=== PATIENT | male | born 1965 | race African-American/Black ===

== ENCOUNTER 2022-10-23 19:21 | Emergency (ER) | payer BC, OTHER ==
[~2022-10-23] VITALS: Ht 170.2 cm; Wt 68.4 kg
[2022-10-23] MEDS ORDERED: KETOROLAC 60MG/2ML VIAL IM ONE (20:45)
[2022-10-23 21:14] VITALS: BP 128/87
== END 2022-10-23 21:16 | disposition left against medical advice (07) ==
LOC: ER 19:21
DX: Z43.0 Encounter for attention to tracheostomy (principal); Z87.891 Personal history of nicotine dependence
CPT/HCPCS: 99281

== ENCOUNTER 2024-06-17 17:07 | Inpatient (IN) | payer MEDICARE, OTHER ==
[~2024-06-17] VITALS: Ht 170.2 cm; Wt 52.8 kg
[2024-06-17] VITALS (7 sets, daily range): BP systolic 131–138; BP diastolic 74–77; PULSE 100–107; RESP 17–25; TEMP 36.61404–37.6412; O2SAT 97–99
[2024-06-17] MEDS: METHYLPREDNISOLONE SOD SUCC 125MG/2ML (ACT-O-VIAL) IV STA (17:36)
[2024-06-17] MEDS: AZITHROMYCIN 500MG/250ML 250 ML IV ONE (17:45)
[2024-06-17] MEDS: SODIUM CHLORIDE 0.9% 1000ML BAG (SEPSIS BOLUS) IV ONE (17:45)
[2024-06-17 17:55] LABS: HEMATOCRIT. 32.2 % (42.0-52.0); MEAN CORPUSCULAR HEMOGLOBIN 30.9 pg (28.0-32.0); MEAN CORPUSCULAR HGB CONC 31.1 g/dL (31.0-37.0); MEAN CORPUSCULAR VOLUME 99.5 fL (80.0-94.0); MEAN PLATELET VOLUME 7.3 fl (7.4-10.4); PLATELET 136 x1000/uL (130-400); RED BLOOD CELL COUNT 3.23 mill/uL (4.7-6.1); RED CELL DISTRIBUTION WIDTH 14.8 % (11.6-14.6); WHITE BLOOD COUNT 7.1 x1000/uL (4.5-11.0)
[2024-06-17] MEDS: IPRATROPIUM BROMIDE (0.02%) 0.5MG/2.5ML NEB HHN STA (17:59)
[2024-06-17] MEDS: ALBUTEROL (0.083%) 2.5MG/3ML NEB HHN STA (17:59)
[2024-06-17 18:01] LABS: CHLORIDE 94 mEq/L (98-107); SODIUM 140 mEq/L (136-145)
[2024-06-17 18:02] LABS: CALCIUM 9.4 mg/dL (8.7-10.4)
[2024-06-17 18:03] LABS: INR 0.9; PROTHROMBIN TIME 10.4 sec (9.6-11.0)
[2024-06-17 18:07] LABS: CREATININE 0.7 mg/dL (0.6-1.3); GLUCOSE 126 mg/dL (70-105); UREA NITROGEN BLOOD 17 mg/dL (9-23)
[2024-06-17 18:08] LABS: CARBON DIOXIDE > 40 mEq/L (21-32)
[2024-06-17 18:09] LABS: ALANINE AMINOTRANSFERASE 12 IU/L (10-49); ALBUMIN 3.9 g/dL (3.2-4.8); ASPARTATE AMINOTRANSFERASE 14 IU/L (<34); BILIRUBIN DIRECT 0.1 mg/dL (<=3.0); BILIRUBIN TOTAL 0.5 mg/dL (0.1-1.0); PROTEIN TOTAL 7.6 g/dL (6.0-8.3); TROPONIN I HIGH SENSITIVITY 8 ng/L (3.0-53)
[2024-06-17 18:10] LABS: DIFFERENTIAL COMMENT 1
[2024-06-17 18:39] LABS: BG BASE EXCESS 19.1 mmol/L (-2.0-3.0); BG CARBOXYHEMOGLOBIN 1.6 % (0.5-1.5); BG DEOXYHEMOGLOBIN 3.9 % (0.0-5.0); BG FRACTION INSPIRED OXYGEN 60; BG METHEMOGLOBIN 0.3 % (0.5-1.5); BG OXYHEMOGLOBIN 94.2 % (94.0-98.0); BG PCO2 127.5 mmHg (35.0-48.0); BG PO2 88.6 mmHg (83.0-108.0); BG SAMPLE SITE RIGHT BRACHIAL; BG TOTAL RESPIRATORY RATE 23 b/min; BG VENT MODE MASK - BIPAP
[2024-06-17 19:28] LABS: PLATELET ESTIMATE NORMAL
[2024-06-17 20:54] LABS: CLARITY URINE CLEAR (CLEAR); COLOR URINE YELLOW (YELLOW); GLUCOSE URINE NEGATIVE (NEGATIVE); KETONES URINE NEGATIVE (NEGATIVE); LEUKOCYTE ESTERASE URINE NEGATIVE (NEGATIVE); NITRITE URINE NEGATIVE (NEGATIVE); OCCULT BLOOD URINE NEGATIVE (NEGATIVE); PH URINE 5.5 (4.5-8.0); PROTEIN URINE 1+ (NEGATIVE); SPECIFIC GRAVITY URINE 1.021 (1.005-1.030); UROBILINOGEN URINE 0.2 E.U./dL (0.2-1.0)
[2024-06-17 21:41] LABS: RBC URINE 0-2 /hpf (0-2); WBC URINE 0-2 /hpf (0-2)
[2024-06-17 21:42] LABS: BACTERIA URINE NONE SEEN; SQUAMOUS EPITHELIAL CELL URINE 1+ /lpf (RARE/1+); YEAST URINE NONE SEEN
[2024-06-17] MEDS ORDERED: ONDANSETRON HCL 4MG/2ML INJ IV PRN (23:45)
[2024-06-17] MEDS ORDERED: CLONIDINE 0.1MG TABLET PO PRN (23:45)
[2024-06-17] MEDS ORDERED: NALOXONE HCL 0.4MG/ML VIAL IV PRN (23:45)
[2024-06-18] VITALS (75 sets, daily range): BP systolic 96–157; BP diastolic 63–96; PULSE 58–130; RESP 12–30; TEMP 36.61404–37.72524; O2SAT 10–100
[2024-06-18] LABS: BG BASE EXCESS 20.6 mmol/L (-2.0-3.0); BG CARBOXYHEMOGLOBIN 1.9 % (0.5-1.5); BG DEOXYHEMOGLOBIN 2.1 % (0.0-5.0); BG FRACTION INSPIRED OXYGEN 60; BG HCO3 ACT 51.8 mmol/L (21.0-28.0); BG METHEMOGLOBIN 0.3 % (0.5-1.5); BG OXYGEN SATURATION 97.9 % (94.0-98.0); BG OXYHEMOGLOBIN 95.7 % (94.0-98.0); BG PCO2 118.4 mmHg (35.0-48.0); BG PH 7.259 (7.350-7.450); BG PO2 101.5 mmHg (83.0-108.0); BG SAMPLE SITE RIGHT RADIAL; BG TOTAL HEMOGLOBIN 9.9 g/dL (13.5-17.5); BG VENT MODE MASK - BIPAP
[2024-06-18] MEDS: SODIUM CHLORIDE 0.9% 1,000 ML IV SCH (00:15)
[2024-06-18] MEDS: PIPERACILLIN/TAZO 3.375G/50ML 50 ML IV SCH (00:15)
[2024-06-18] MEDS: IPRATROPIUM/ALBUTEROL 0.5-3(2.5)MG/3ML NEB HHN SCH (00:42)
[2024-06-18] MEDS: QUETIAPINE FUMARATE 50MG TABLET PO SCH ×2 (02:07→20:54)
[2024-06-18] MEDS: METHYLPREDNISOLONE SOD SUCC 40MG/ML (ACT-O-VIAL) IV SCH (06:33)
[2024-06-18 07:43] LABS: HEMATOCRIT. 29.6 % (42.0-52.0); HEMOGLOBIN. 9.2 g/dL (14.0-18.0); MEAN CORPUSCULAR HEMOGLOBIN 30.9 pg (28.0-32.0); MEAN CORPUSCULAR HGB CONC 31.1 g/dL (31.0-37.0); MEAN CORPUSCULAR VOLUME 99.4 fL (80.0-94.0); MEAN PLATELET VOLUME 7.8 fl (7.4-10.4); PLATELET 132 x1000/uL (130-400); RED BLOOD CELL COUNT 2.98 mill/uL (4.7-6.1); RED CELL DISTRIBUTION WIDTH 14.9 % (11.6-14.6); WHITE BLOOD COUNT 4.2 x1000/uL (4.5-11.0)
[2024-06-18 07:49] LABS: CHLORIDE 98 mEq/L (98-107); POTASSIUM 5.4 mEq/L (3.5-5.1); SODIUM 141 mEq/L (136-145)
[2024-06-18 07:51] LABS: CALCIUM 9.2 mg/dL (8.7-10.4); DIFFERENTIAL COMMENT 1
[2024-06-18 07:55] LABS: CREATININE 0.7 mg/dL (0.6-1.3); GLUCOSE 131 mg/dL (70-105); UREA NITROGEN BLOOD 14 mg/dL (9-23)
[2024-06-18] MEDS: PANTOPRAZOLE SODIUM 40 MG/VIAL IV SCH (08:32)
[2024-06-18] MEDS: AZITHROMYCIN 500MG/250ML 250 ML IV SCH (08:34)
[2024-06-18] MEDS: FUROSEMIDE 20MG/2ML VIAL IVP SCH (08:34)
[2024-06-18] MEDS: ENOXAPARIN 40MG/0.4ML SYR SUBCUT SCH (08:34)
[2024-06-18 08:53] LABS: CARBON DIOXIDE > 40 mEq/L (21-32)
[2024-06-18 09:23] LABS: BG BASE EXCESS 18.6 mmol/L (-2.0-3.0); BG CARBOXYHEMOGLOBIN 1.8 % (0.5-1.5); BG DEOXYHEMOGLOBIN 1.4 % (0.0-5.0); BG FRACTION INSPIRED OXYGEN 60; BG HCO3 ACT 52.7 mmol/L (21.0-28.0); BG METHEMOGLOBIN 0.3 % (0.5-1.5); BG OXYGEN SATURATION 98.6 % (94.0-98.0); BG OXYHEMOGLOBIN 96.5 % (94.0-98.0); BG PCO2 150.1 mmHg (35.0-48.0); BG PH 7.163 (7.350-7.450); BG PO2 127.4 mmHg (83.0-108.0); BG SAMPLE SITE RIGHT RADIAL; BG TOTAL HEMOGLOBIN 11.5 g/dL (13.5-17.5); BG VENT MODE MASK - BIPAP
[2024-06-18 10:14] LABS: *AMPHETAMINES SCREEN URINE NEGATIVE (NEGATIVE); *BARBITURATES SCREEN URINE NEGATIVE (NEGATIVE); *BENZODIAZEPINES SCREEN URINE NEGATIVE (NEGATIVE); *COCAINE SCREEN URINE NEGATIVE (NEGATIVE); CANNABINOID URINE SCREEN NEGATIVE (NEGATIVE); ECSTASY MDMA SCREEN URINE NEGATIVE (NEGATIVE); METHADONE URINE SCREEN NEGATIVE (NEGATIVE); OPIATES URINE SCREEN PRESUMPTIVE POSITIVE (NEGATIVE); PHENCYCLIDINE URINE SCREEN NEGATIVE (NEGATIVE)
[2024-06-18 11:18] LABS: BG BASE EXCESS 22.9 mmol/L (-2.0-3.0); BG CARBOXYHEMOGLOBIN 2.1 % (0.5-1.5); BG FRACTION INSPIRED OXYGEN 60; BG HCO3 ACT 57.6 mmol/L (21.0-28.0); BG METHEMOGLOBIN 0.3 % (0.5-1.5); BG OXYHEMOGLOBIN 96.6 % (94.0-98.0); BG PCO2 162.4 mmHg (35.0-48.0); BG PH 7.168 (7.350-7.450); BG PO2 144.1 mmHg (83.0-108.0); BG SAMPLE SITE RIGHT RADIAL; BG TOTAL HEMOGLOBIN 11.4 g/dL (13.5-17.5); BG VENT MODE MASK - BIPAP
[2024-06-18] MEDS: DEXMEDETOMIDINE 400 MCG/100 ML 100 ML IV PRN (13:21)
[2024-06-18] MEDS: LORAZEPAM 2MG/ML INJ IV NR (13:50)
[2024-06-18 14:58] LABS: BG BASE EXCESS 19.1 mmol/L (-2.0-3.0); BG CARBOXYHEMOGLOBIN 2.3 % (0.5-1.5); BG DEOXYHEMOGLOBIN 2.3 % (0.0-5.0); BG FRACTION INSPIRED OXYGEN 40; BG HCO3 ACT 42.9 mmol/L (21.0-28.0); BG METHEMOGLOBIN 0.3 % (0.5-1.5); BG OXYGEN SATURATION 97.6 % (94.0-98.0); BG OXYHEMOGLOBIN 95.1 % (94.0-98.0); BG PCO2 44.8 mmHg (35.0-48.0); BG PH 7.599 (7.350-7.450); BG PO2 72.8 mmHg (83.0-108.0); BG SAMPLE SITE RIGHT RADIAL; BG TOTAL HEMOGLOBIN 12.5 g/dL (13.5-17.5); BG VENT MODE VENT - AC
[2024-06-18 15:48] LABS: BASOPHILS % 0.2 % (0.0-2.0); EOSINOPHILS % 0.3 % (0.0-5.0); HEMATOCRIT. 29.9 % (42.0-52.0); HEMOGLOBIN. 9.5 g/dL (14.0-18.0); LYMPHOCYTES % 9.6 % (20.0-50.0); MEAN CORPUSCULAR HEMOGLOBIN 31.4 pg (28.0-32.0); MEAN CORPUSCULAR HGB CONC 31.8 g/dL (31.0-37.0); MEAN CORPUSCULAR VOLUME 98.6 fL (80.0-94.0); MEAN PLATELET VOLUME 8.5 fl (7.4-10.4); MONOCYTES % 10.7 % (2.0-8.0); NEUTROPHILS % 79.2 % (40.0-76.0); PLATELET 133 x1000/uL (130-400); RED BLOOD CELL COUNT 3.03 mill/uL (4.7-6.1); RED CELL DISTRIBUTION WIDTH 14.9 % (11.6-14.6); WHITE BLOOD COUNT 4.7 x1000/uL (4.5-11.0)
[2024-06-18 15:54] LABS: CHLORIDE 93 mEq/L (98-107); POTASSIUM 4.6 mEq/L (3.5-5.1); SODIUM 140 mEq/L (136-145)
[2024-06-18 15:55] LABS: CALCIUM 9.5 mg/dL (8.7-10.4)
[2024-06-18 15:57] LABS: CARBON DIOXIDE > 40 mEq/L (21-32)
[2024-06-18 16:00] LABS: CREATINE KINASE MB FRACTION 0.8 ng/mL (0.5-3.6); CREATININE 0.8 mg/dL (0.6-1.3); GLUCOSE 99 mg/dL (70-105); TROPONIN I HIGH SENSITIVITY 6 ng/L (3.0-53); UREA NITROGEN BLOOD 15 mg/dL (9-23)
[2024-06-18 16:02] LABS: ALANINE AMINOTRANSFERASE 13 IU/L (10-49); ALBUMIN 3.6 g/dL (3.2-4.8); ASPARTATE AMINOTRANSFERASE 13 IU/L (<34); BILIRUBIN TOTAL 1.1 mg/dL (0.1-1.0); CREATINE KINASE 39 IU/L (46-171); PHOSPHORUS 1.6 mg/dL (2.5-4.9); PROTEIN TOTAL 7.1 g/dL (6.0-8.3)
[2024-06-18 16:06] LABS: NUCLEATED RED BLOOD CELLS 1 /100 WBC; PLATELET ESTIMATE NORMAL
[2024-06-18] MEDS: ACETYLCYSTEINE 200MG/ML 20% VIAL 4ML INH SCH (16:50)
[2024-06-18 23:25] LABS: BG BASE EXCESS 13.7 mmol/L (-2.0-3.0); BG DEOXYHEMOGLOBIN 0.4 % (0.0-5.0); BG FRACTION INSPIRED OXYGEN 50; BG HCO3 ACT 37.2 mmol/L (21.0-28.0); BG METHEMOGLOBIN 0.3 % (0.5-1.5); BG OXYGEN SATURATION 99.6 % (94.0-98.0); BG OXYHEMOGLOBIN 98.3 % (94.0-98.0); BG PCO2 42.3 mmHg (35.0-48.0); BG PH 7.562 (7.350-7.450); BG PO2 150.4 mmHg (83.0-108.0); BG TOTAL HEMOGLOBIN 9.8 g/dL (13.5-17.5); BG VENT MODE VENT - AC
[2024-06-19] VITALS (103 sets, daily range): BP systolic 109–171; BP diastolic 59–112; PULSE 51–108; RESP 14–28; TEMP 36.61404–37.66968; O2SAT 95–100
[2024-06-19 11:24] LABS: BG BASE EXCESS 11.2 mmol/L (-2.0-3.0); BG CARBOXYHEMOGLOBIN 0.7 % (0.5-1.5); BG FRACTION INSPIRED OXYGEN 40; BG HCO3 ACT 36.6 mmol/L (21.0-28.0); BG METHEMOGLOBIN 0.3 % (0.5-1.5); BG PCO2 53.8 mmHg (35.0-48.0); BG PH 7.451 (7.350-7.450); BG PO2 133.8 mmHg (83.0-108.0); BG SAMPLE SITE RIGHT RADIAL; BG TOTAL HEMOGLOBIN 9.7 g/dL (13.5-17.5); BG VENT MODE VENT - AC
[2024-06-19 13:07] LABS: CHLORIDE 98 mEq/L (98-107); POTASSIUM 3.3 mEq/L (3.5-5.1); SODIUM 141 mEq/L (136-145)
[2024-06-19 13:08] LABS: CALCIUM 8.9 mg/dL (8.7-10.4); CARBON DIOXIDE 40 mEq/L (21-32)
[2024-06-19 13:13] LABS: CREATININE 0.9 mg/dL (0.6-1.3); GLUCOSE 131 mg/dL (70-105); UREA NITROGEN BLOOD 23 mg/dL (9-23)
[2024-06-19 16:29] LABS: HEMOGLOBIN. 9.2 g/dL (14.0-18.0); MEAN CORPUSCULAR HEMOGLOBIN 30.4 pg (28.0-32.0); MEAN CORPUSCULAR HGB CONC 31.8 g/dL (31.0-37.0); MEAN CORPUSCULAR VOLUME 95.6 fL (80.0-94.0); MEAN PLATELET VOLUME 7.6 fl (7.4-10.4); PLATELET 150 x1000/uL (130-400); RED BLOOD CELL COUNT 3.04 mill/uL (4.7-6.1); RED CELL DISTRIBUTION WIDTH 14.8 % (11.6-14.6); WHITE BLOOD COUNT 3.8 x1000/uL (4.5-11.0)
[2024-06-19 16:31] LABS: DIFFERENTIAL COMMENT 1
[2024-06-19 16:53] LABS: PLATELET ESTIMATE NORMAL
[2024-06-19] MEDS: QUETIAPINE FUMARATE 50MG TABLET PO SCH (16:58)
[2024-06-19] MEDS: POTASSIUM CHLORIDE 20MEQ/PACKET PO NR (16:58)
[2024-06-19] MEDS: DOXAZOSIN MESYLATE 2MG TABLET PO SCH (21:20)
[2024-06-19] MEDS: AMLODIPINE 5MG TABLET PO SCH (21:21)
[2024-06-19] MEDS: LORAZEPAM 2MG/ML INJ IV PRN (23:21)
[2024-06-20] VITALS (73 sets, daily range): BP systolic 111–156; BP diastolic 74–96; PULSE 66–116; RESP 18–27; TEMP 37.2252–37.503; O2SAT 93–100
[2024-06-20] MEDS: KCL 20MEQ/100ML PREMIX 100 ML IV SCH (07:07)
[2024-06-20] MEDS: AZITHROMYCIN 500 MG in SODIUM CHLORIDE 0.9% 250 ML IV SCH (10:03)
[2024-06-20 11:45] LABS: BG BASE EXCESS 11.4 mmol/L (-2.0-3.0); BG CARBOXYHEMOGLOBIN 0.1 % (0.5-1.5); BG DEOXYHEMOGLOBIN 1.2 % (0.0-5.0); BG FRACTION INSPIRED OXYGEN 40; BG METHEMOGLOBIN 0.3 % (0.5-1.5); BG OXYGEN SATURATION 98.8 % (94.0-98.0); BG OXYHEMOGLOBIN 98.4 % (94.0-98.0); BG PCO2 54.4 mmHg (35.0-48.0); BG PO2 125.8 mmHg (83.0-108.0); BG SAMPLE SITE RIGHT RADIAL; BG TOTAL HEMOGLOBIN 9.8 g/dL (13.5-17.5); BG VENT MODE VENT - CPAP
[2024-06-20 18:28] LABS: BG BASE EXCESS 10.4 mmol/L (-2.0-3.0); BG CARBOXYHEMOGLOBIN 0.4 % (0.5-1.5); BG DEOXYHEMOGLOBIN 2.5 % (0.0-5.0); BG HCO3 ACT 35.6 mmol/L (21.0-28.0); BG METHEMOGLOBIN 0.3 % (0.5-1.5); BG OXYGEN SATURATION 97.5 % (94.0-98.0); BG OXYHEMOGLOBIN 96.8 % (94.0-98.0); BG PCO2 52.1 mmHg (35.0-48.0); BG PH 7.453 (7.350-7.450); BG PO2 93.9 mmHg (83.0-108.0); BG TOTAL HEMOGLOBIN 9.6 g/dL (13.5-17.5)
[2024-06-20 18:46] LABS: BG FRACTION INSPIRED OXYGEN 35; BG VENT MODE COOL AEROSAL
[2024-06-20 18:47] LABS: BG SAMPLE SITE RIGHT RADIAL
[2024-06-21] VITALS (73 sets, daily range): BP systolic 102–162; BP diastolic 68–97; PULSE 70–110; RESP 15–36; TEMP 36.28068–37.2252; O2SAT 93–99
[2024-06-21] MEDS: AZITHROMYCIN 250 MG TABLET PO SCH (09:16)
[2024-06-21 09:37] LABS: BASOPHILS % 0.2 % (0.0-2.0); EOSINOPHILS % 0.1 % (0.0-5.0); HEMATOCRIT. 32.4 % (42.0-52.0); HEMOGLOBIN. 10.5 g/dL (14.0-18.0); LYMPHOCYTES % 8.6 % (20.0-50.0); MEAN CORPUSCULAR HEMOGLOBIN 30.6 pg (28.0-32.0); MEAN CORPUSCULAR HGB CONC 32.4 g/dL (31.0-37.0); MEAN CORPUSCULAR VOLUME 94.6 fL (80.0-94.0); MEAN PLATELET VOLUME 7.4 fl (7.4-10.4); MONOCYTES % 4.2 % (2.0-8.0); NEUTROPHILS % 86.9 % (40.0-76.0); PLATELET 175 x1000/uL (130-400); RED BLOOD CELL COUNT 3.43 mill/uL (4.7-6.1); RED CELL DISTRIBUTION WIDTH 14.9 % (11.6-14.6); WHITE BLOOD COUNT 3.4 x1000/uL (4.5-11.0)
[2024-06-21 09:47] LABS: CARBON DIOXIDE 33 mEq/L (21-32); CHLORIDE 101 mEq/L (98-107); POTASSIUM 4.4 mEq/L (3.5-5.1); SODIUM 140 mEq/L (136-145)
[2024-06-21 09:48] LABS: CALCIUM 9.1 mg/dL (8.7-10.4)
[2024-06-21 09:52] LABS: CREATININE 0.8 mg/dL (0.6-1.3); GLUCOSE 109 mg/dL (70-105)
[2024-06-21 09:53] LABS: UREA NITROGEN BLOOD 27 mg/dL (9-23)
[2024-06-21] MEDS: HYDROCODONE/ACETAMINOPHEN 5/325MG TABLET PO PRN (18:00)
[2024-06-21] MEDS: METHYLPREDNISOLONE SOD SUCC 40MG/ML (ACT-O-VIAL) IV SCH (21:31)
[2024-06-22] VITALS (48 sets, daily range): BP systolic 94–133; BP diastolic 68–83; PULSE 70–104; RESP 15–27; TEMP 36.44736–37.28076; O2SAT 93–99
[2024-06-22] MEDS: LORAZEPAM 0.5MG TABLET PO PRN (18:12)
[2024-06-22] MEDS: ACETAMINOPHEN 325MG TABLET PO PRN (21:54)
[2024-06-23] VITALS (11 sets, daily range): BP systolic 93–111; BP diastolic 64–72; PULSE 73–94; RESP 14–24; TEMP 36.114–37.2252; O2SAT 92–98
[2024-06-23] MEDS ORDERED: AMLO5TAB88 PO (14:29)
[2024-06-23] MEDS ORDERED: IPRA3AMP9 HHN (14:29)
[2024-06-23] MEDS ORDERED: METH4TAB95 MT (14:29)
[2024-06-23] MEDS ORDERED: FURO-152 MT (14:29)
[2024-06-23] MEDS ORDERED: DOXA-14 PO (14:29)
[2024-06-23] MEDS ORDERED: QUET50TA PO (14:29)
[2024-06-24] MEDS ORDERED: FAMOTIDINE 20MG/2ML VIAL IV SCH (09:00)
== END 2024-06-23 18:30 | disposition left against medical advice (07) | DRG 871 ==
LOC: ER 17:07 → EDBEDREQSVC 21:20 → EDBEDREQTM 21:20 → EDBEDREQ 21:20 → CVICU 22:47 → 5EST 06-22 11:55
PROVIDERS: ADMIT Internal Medicine; ATTEND Internal Medicine
PROC: 5A09357 Assistance with Respiratory Ventilation, Less than 24 Consecutive Hours, Continuous Positive Airway Pressure (ICD-10-PCS; principal; 2024-06-17)
PROC: 5A1945Z Respiratory Ventilation, 24-96 Consecutive Hours (ICD-10-PCS; 2024-06-18)
PROC: 0B21XFZ Change Tracheostomy Device in Trachea, External Approach (ICD-10-PCS; 2024-06-23)
DX: A41.9 Sepsis, unspecified organism (principal); J18.9 Pneumonia, unspecified organism; J69.0 Pneumonitis due to inhalation of food and vomit; J96.22 Acute and chronic respiratory failure with hypercapnia; J96.21 Acute and chronic respiratory failure with hypoxia; J44.0 Chronic obstructive pulmonary disease with (acute) lower respiratory infection; J44.1 Chronic obstructive pulmonary disease with (acute) exacerbation; Z53.29 Procedure and treatment not carried out because of patient's decision for other reasons; R13.10 Dysphagia, unspecified; E87.5 Hyperkalemia; R80.9 Proteinuria, unspecified; D53.9 Nutritional anemia, unspecified; Z93.0 Tracheostomy status
CPT/HCPCS: 36415; 36600; 71045; 80048; 80053; 80076; 80305; 81003; 82375; 82550; 82553; 82805; 82962; 83605; 83735; 83880; 84100; 84145; 84484; 85025; 93005; 93306; 93970; 94003; 94640; 94660; 99291; J0456; J1650; J1940; J2060; J2470; J2543; J2919; J2920; J3480; J7030; J7050; J7608; Q9957

== ENCOUNTER 2024-08-09 22:43 | Inpatient (IN) | payer MEDICARE, OTHER ==
[~2024-08-09] VITALS: Ht 167.6 cm; Wt 54.9 kg
[~2024-08-09 22:43] MED LIST: AMLO5TAB88 PO; DOXA-14 PO; FURO-152 MT; IPRA3AMP9 HHN; METH4TAB95 MT; QUET50TA PO
[2024-08-10] VITALS (10 sets, daily range): PULSE 61–115; RESP 20–25; O2SAT 94–100
[2024-08-10] MEDS: PIPERACILLIN/TAZO 3.375G/50ML 50 ML IV ONE (00:16)
[2024-08-10 00:29] LABS: CHLORIDE 95 mEq/L (98-107); POTASSIUM 4.5 mEq/L (3.5-5.1); SODIUM 145 mEq/L (136-145)
[2024-08-10] MEDS: SODIUM CHLORIDE 0.9% (SEPSIS BOLUS) IV ONE (00:29)
[2024-08-10 00:30] LABS: CALCIUM 9.7 mg/dL (8.7-10.4); CARBON DIOXIDE 38 mEq/L (21-32)
[2024-08-10 00:32] LABS: INR 0.9; PROTHROMBIN TIME 10.4 sec (9.6-11.0)
[2024-08-10 00:35] LABS: CREATININE 0.9 mg/dL (0.6-1.3); GLUCOSE 132 mg/dL (70-105); TROPONIN I HIGH SENSITIVITY 8 ng/L (3.0-53); UREA NITROGEN BLOOD 13 mg/dL (9-23)
[2024-08-10 00:37] LABS: ALANINE AMINOTRANSFERASE 8 IU/L (10-49); ALBUMIN 4.1 g/dL (3.2-4.8); ASPARTATE AMINOTRANSFERASE 17 IU/L (<34); BILIRUBIN DIRECT 0.1 mg/dL (<=3.0); BILIRUBIN TOTAL 0.4 mg/dL (0.1-1.0); PROTEIN TOTAL 7.8 g/dL (6.0-8.3)
[2024-08-10 00:39] LABS: BG BASE EXCESS 7.8 mmol/L (-2.0-3.0); BG CARBOXYHEMOGLOBIN 1.7 % (0.5-1.5); BG DEOXYHEMOGLOBIN 0.4 % (0.0-5.0); BG METHEMOGLOBIN 0.3 % (0.5-1.5); BG OXYGEN SATURATION 99.6 % (94.0-98.0); BG OXYHEMOGLOBIN 97.6 % (94.0-98.0); BG PCO2 126.3 mmHg (35.0-48.0); BG PH 7.118 (7.350-7.450); BG PO2 178.5 mmHg (83.0-108.0); BG TOTAL HEMOGLOBIN 9.8 g/dL (13.5-17.5); BG VENT MODE NASAL CANNULA
[2024-08-10 00:40] LABS: THYROID STIMULATING HORMONE 0.37 uIU/mL (0.55-4.78)
[2024-08-10] MEDS: VANCOMYCIN 1G PREMIX 200 ML IV ONE (01:34)
[2024-08-10] MEDS: VANCOMYCIN 1G PREMIX 200 ML IV NR (01:34)
[2024-08-10 01:49] LABS: HEMOGLOBIN. 10.1 g/dL (14.0-18.0); MEAN CORPUSCULAR HEMOGLOBIN 30.2 pg (28.0-32.0); MEAN CORPUSCULAR HGB CONC 29.7 g/dL (31.0-37.0); MEAN CORPUSCULAR VOLUME 101.6 fL (80.0-94.0); PLATELET 162 x1000/uL (130-400); RED BLOOD CELL COUNT 3.35 mill/uL (4.7-6.1); RED CELL DISTRIBUTION WIDTH 17.4 % (11.6-14.6); WHITE BLOOD COUNT 9.5 x1000/uL (4.5-11.0)
[2024-08-10 02:15] LABS: DIFFERENTIAL COMMENT 1
[2024-08-10 02:49] LABS: LACTIC ACID 13.5 mmol/L (0.4-2.0)
[2024-08-10 05:14] LABS: TROPONIN I HIGH SENSITIVITY 10 ng/L (3.0-53)
[2024-08-10 05:43] LABS: PLATELET ESTIMATE NORMAL
[2024-08-10 06:47] LABS: CLARITY URINE CLEAR (CLEAR); COLOR URINE YELLOW (YELLOW); GLUCOSE URINE NEGATIVE (NEGATIVE); KETONES URINE NEGATIVE (NEGATIVE); LEUKOCYTE ESTERASE URINE NEGATIVE (NEGATIVE); NITRITE URINE NEGATIVE (NEGATIVE); OCCULT BLOOD URINE NEGATIVE (NEGATIVE); PROTEIN URINE 2+ (NEGATIVE); SPECIFIC GRAVITY URINE 1.018 (1.005-1.030); UROBILINOGEN URINE 0.2 E.U./dL (0.2-1.0)
[2024-08-10] MEDS: ACETAMINOPHEN 1000MG/100ML 100 ML IV PRN (07:05)
[2024-08-10 07:29] LABS: SQUAMOUS EPITHELIAL CELL URINE FEW /lpf (RARE/1+)
[2024-08-10 07:35] LABS: BACTERIA URINE TRACE; CALCIUM OXALATE CRYSTALS URINE 1+ /lpf; FINE GRANULAR CASTS URINE 0-5 /lpf; YEAST URINE 1+
[2024-08-10 08:04] LABS: BG BASE EXCESS 16.6 mmol/L (-2.0-3.0); BG DEOXYHEMOGLOBIN 2.7 % (0.0-5.0); BG HCO3 ACT 40.3 mmol/L (21.0-28.0); BG METHEMOGLOBIN 0.3 % (0.5-1.5); BG OXYGEN SATURATION 97.2 % (94.0-98.0); BG PCO2 44.9 mmHg (35.0-48.0); BG PH 7.571 (7.350-7.450); BG SAMPLE SITE RIGHT RADIAL; BG TOTAL HEMOGLOBIN 8.6 g/dL (13.5-17.5); BG VENT MODE VENT - AC
[2024-08-10] MEDS: METHYLPREDNISOLONE SOD SUCC 125MG/2ML (ACT-O-VIAL) IV NR (09:48)
[2024-08-10] MEDS ORDERED: ONDANSETRON HCL 4MG/2ML INJ IV PRN (10:45)
[2024-08-10] MEDS ORDERED: ACETAMINOPHEN 325MG TABLET PO PRN (10:45)
[2024-08-10 11:21] LABS: HEMATOCRIT 26.2 % (42.0-52.0); HEMOGLOBIN 8.3 g/dL (14.0-18.0); MEAN CORPUSCULAR HEMOGLOBIN 30.8 pg (28.0-32.0); MEAN CORPUSCULAR HGB CONC 31.6 g/dL (31.0-37.0); MEAN CORPUSCULAR VOLUME 97.6 fL (80.0-94.0); PLATELET 149 x1000/uL (130-400); RED BLOOD CELL COUNT 2.68 mill/uL (4.7-6.1); RED CELL DISTRIBUTION WIDTH 16.6 % (11.6-14.6); WHITE BLOOD COUNT 7.3 x1000/uL (4.5-11.0)
[2024-08-10 11:22] LABS: CHLORIDE 99 mEq/L (98-107); POTASSIUM 4.1 mEq/L (3.5-5.1); SODIUM 144 mEq/L (136-145)
[2024-08-10 11:23] LABS: CALCIUM 8.8 mg/dL (8.7-10.4)
[2024-08-10 11:28] LABS: CREATININE 0.7 mg/dL (0.6-1.3); GLUCOSE 100 mg/dL (70-105); UREA NITROGEN BLOOD 13 mg/dL (9-23)
[2024-08-10 11:33] LABS: THYROID STIMULATING HORMONE 0.15 uIU/mL (0.55-4.78)
[2024-08-10 11:44] LABS: PHOSPHORUS 0.7 mg/dL (2.5-4.9)
[2024-08-10 11:45] LABS: CARBON DIOXIDE > 40 mEq/L (21-32)
[2024-08-10] MEDS ORDERED: IPRATROPIUM/ALBUTEROL 0.5-3(2.5)MG/3ML NEB HHN SCH ×2 (12:00→16:00)
[2024-08-10] MEDS: PIPERACILLIN/TAZO 3.375G/50ML 50 ML IV SCH ×2 (13:17→23:11)
[2024-08-10] MEDS: IPRATROPIUM BROMIDE (0.02%) 0.5MG/2.5ML NEB HHN SCH (15:25)
[2024-08-10] MEDS: BUDESONIDE 0.5MG/2ML NEB HHN SCH (15:25)
[2024-08-10] MEDS: MAGNESIUM 2 G PREMIX 50 ML IV NR (22:07)
[2024-08-10] MEDS: FAMOTIDINE 20MG TABLET PO SCH (22:08)
[2024-08-10] MEDS: METHYLPREDNISOLONE SOD SUCC 40MG/ML (ACT-O-VIAL) IV SCH (22:08)
[2024-08-10] MEDS: SODIUM PHOSPHATE 30 MMOL in SODIUM CHLORIDE 0.9% 490 ML IV NR (23:12)
[2024-08-11] VITALS (22 sets, daily range): BP systolic 135–162; BP diastolic 73–87; PULSE 53–83; RESP 15–32; TEMP 36.22512–37.44744; O2SAT 99–100
[2024-08-11 06:57] LABS: CHLORIDE 103 mEq/L (98-107); POTASSIUM 3.7 mEq/L (3.5-5.1); SODIUM 143 mEq/L (136-145)
[2024-08-11 06:58] LABS: CARBON DIOXIDE 37 mEq/L (21-32)
[2024-08-11 06:59] LABS: CALCIUM 8.8 mg/dL (8.7-10.4)
[2024-08-11 07:03] LABS: CREATININE 0.9 mg/dL (0.6-1.3); GLUCOSE 125 mg/dL (70-105); UREA NITROGEN BLOOD 19 mg/dL (9-23)
[2024-08-11 08:15] LABS: BASOPHILS % 0.1 % (0.0-2.0); EOSINOPHILS % 0.1 % (0.0-5.0); HEMATOCRIT. 28.2 % (42.0-52.0); HEMOGLOBIN. 8.6 g/dL (14.0-18.0); LYMPHOCYTES % 9.3 % (20.0-50.0); MEAN CORPUSCULAR HEMOGLOBIN 29.8 pg (28.0-32.0); MEAN CORPUSCULAR HGB CONC 30.7 g/dL (31.0-37.0); MEAN PLATELET VOLUME 7.6 fl (7.4-10.4); MONOCYTES % 8.5 % (2.0-8.0); PLATELET 161 x1000/uL (130-400); WHITE BLOOD COUNT 3.8 x1000/uL (4.5-11.0)
[2024-08-11 10:33] LABS: BG BASE EXCESS 10.6 mmol/L (-2.0-3.0); BG CARBOXYHEMOGLOBIN 1.6 % (0.5-1.5); BG DEOXYHEMOGLOBIN 0.9 % (0.0-5.0); BG FRACTION INSPIRED OXYGEN 40; BG HCO3 ACT 32.4 mmol/L (21.0-28.0); BG METHEMOGLOBIN 0.3 % (0.5-1.5); BG OXYGEN SATURATION 99.1 % (94.0-98.0); BG OXYHEMOGLOBIN 97.2 % (94.0-98.0); BG PCO2 32.2 mmHg (35.0-48.0); BG PO2 107.6 mmHg (83.0-108.0); BG SAMPLE SITE RIGHT BRACHIAL; BG TOTAL HEMOGLOBIN 9.5 g/dL (13.5-17.5); BG VENT MODE VENT - PRVC
[2024-08-11 12:42] LABS: BG BASE EXCESS 7.4 mmol/L (-2.0-3.0); BG DEOXYHEMOGLOBIN 1.4 % (0.0-5.0); BG FRACTION INSPIRED OXYGEN 40; BG HCO3 ACT 30.9 mmol/L (21.0-28.0); BG METHEMOGLOBIN 0.3 % (0.5-1.5); BG OXYGEN SATURATION 98.6 % (94.0-98.0); BG OXYHEMOGLOBIN 98.3 % (94.0-98.0); BG PCO2 39.2 mmHg (35.0-48.0); BG PH 7.515 (7.350-7.450); BG PO2 110.2 mmHg (83.0-108.0); BG SAMPLE SITE LEFT RADIAL; BG TOTAL HEMOGLOBIN 9.6 g/dL (13.5-17.5); BG TOTAL RESPIRATORY RATE 20 b/min; BG VENT MODE VENT PRVC
[2024-08-11 13:34] LABS: CHLORIDE 101 mEq/L (98-107); POTASSIUM 3.6 mEq/L (3.5-5.1); SODIUM 143 mEq/L (136-145)
[2024-08-11 13:35] LABS: CALCIUM 9.1 mg/dL (8.7-10.4); CARBON DIOXIDE 37 mEq/L (21-32)
[2024-08-11 13:40] LABS: CREATININE 0.8 mg/dL (0.6-1.3); GLUCOSE 122 mg/dL (70-105); UREA NITROGEN BLOOD 20 mg/dL (9-23)
[2024-08-11 13:41] LABS: TROPONIN I HIGH SENSITIVITY 12 ng/L (3.0-53)
[2024-08-11] MEDS: ACETAZOLAMIDE SODIUM 500MG/VIAL IV NR (13:41)
[2024-08-11 13:42] LABS: ALANINE AMINOTRANSFERASE < 7 IU/L (10-49); ALBUMIN 3.7 g/dL (3.2-4.8); ASPARTATE AMINOTRANSFERASE 19 IU/L (<34); BILIRUBIN TOTAL 0.9 mg/dL (0.1-1.0); PHOSPHORUS 2.7 mg/dL (2.5-4.9); PROTEIN TOTAL 7.1 g/dL (6.0-8.3)
[2024-08-11] MEDS: FAMOTIDINE 20MG TABLET PO SCH (13:50)
[2024-08-11] MEDS: VANCOMYCIN 1.5GM PMX (XELLIA) 300 ML IV NR (16:01)
[2024-08-11 16:06] LABS: BG CARBOXYHEMOGLOBIN 0.2 % (0.5-1.5); BG DEOXYHEMOGLOBIN 0.7 % (0.0-5.0); BG FRACTION INSPIRED OXYGEN 40; BG HCO3 ACT 32.9 mmol/L (21.0-28.0); BG METHEMOGLOBIN 0.3 % (0.5-1.5); BG OXYGEN SATURATION 99.3 % (94.0-98.0); BG OXYHEMOGLOBIN 98.8 % (94.0-98.0); BG PCO2 42.6 mmHg (35.0-48.0); BG PH 7.506 (7.350-7.450); BG PO2 141.9 mmHg (83.0-108.0); BG SAMPLE SITE RIGHT RADIAL; BG TOTAL HEMOGLOBIN 9.7 g/dL (13.5-17.5); BG TOTAL RESPIRATORY RATE 20 b/min
[2024-08-11 18:39] LABS: BG VENT MODE VENT PRVC
[2024-08-11] MEDS: QUETIAPINE FUMARATE 50MG TABLET GT SCH (22:52)
[2024-08-12] VITALS (25 sets, daily range): BP systolic 124–150; BP diastolic 72–89; PULSE 49–75; RESP 16–35; TEMP 36.22512–37.61412; O2SAT 99–100
[2024-08-12] MEDS: VANCOMYCIN 1GM/200ML PMX (BAXTER) IV SCH (03:24)
[2024-08-12] MEDS ORDERED: QUETIAPINE FUMARATE 50MG TABLET GT SCH (21:00)
[2024-08-12] MEDS ORDERED: VANCOMYCIN 1GM/200ML PMX (BAXTER) IV SCH (21:00)
[2024-08-13] VITALS (24 sets, daily range): BP systolic 121–163; BP diastolic 78–92; PULSE 58–94; RESP 16–37; TEMP 36.28068–37.33632; O2SAT 97–100
[2024-08-13 06:12] LABS: CA 19-9 < 2 U/mL (0-35); CARCINOEMBRYONIC AG - SEND OUT 5.9 ng/mL (0.0-4.7)
[2024-08-13 07:17] LABS: CHLORIDE 109 mEq/L (98-107); SODIUM 142 mEq/L (136-145)
[2024-08-13 07:18] LABS: CALCIUM 8.9 mg/dL (8.7-10.4); CARBON DIOXIDE 22 mEq/L (21-32)
[2024-08-13 07:23] LABS: GLUCOSE 147 mg/dL (70-105); UREA NITROGEN BLOOD 24 mg/dL (9-23)
[2024-08-14] VITALS (24 sets, daily range): BP systolic 113–156; BP diastolic 77–117; PULSE 55–121; RESP 15–40; TEMP 36.22512–37.16964; O2SAT 0–100
[2024-08-14 11:48] LABS: EOSINOPHILS % 0.9 % (0.0-5.0); HEMATOCRIT. 35.7 % (42.0-52.0); HEMOGLOBIN. 11.3 g/dL (14.0-18.0); LYMPHOCYTES % 14.2 % (20.0-50.0); MEAN CORPUSCULAR HGB CONC 31.8 g/dL (31.0-37.0); MEAN CORPUSCULAR VOLUME 94.3 fL (80.0-94.0); MEAN PLATELET VOLUME 7.5 fl (7.4-10.4); MONOCYTES % 9.3 % (2.0-8.0); NEUTROPHILS % 75.6 % (40.0-76.0); PLATELET 185 x1000/uL (130-400); RED BLOOD CELL COUNT 3.78 mill/uL (4.7-6.1); RED CELL DISTRIBUTION WIDTH 16.9 % (11.6-14.6); WHITE BLOOD COUNT 5.4 x1000/uL (4.5-11.0)
[2024-08-14 11:54] LABS: CARBON DIOXIDE 25 mEq/L (21-32); CHLORIDE 106 mEq/L (98-107); SODIUM 140 mEq/L (136-145)
[2024-08-14 11:55] LABS: CALCIUM 9.3 mg/dL (8.7-10.4); PROTHROMBIN TIME 10.9 sec (9.6-11.0)
[2024-08-14 11:59] LABS: CREATININE 0.9 mg/dL (0.6-1.3); UREA NITROGEN BLOOD 20 mg/dL (9-23)
[2024-08-14 12:00] LABS: GLUCOSE 104 mg/dL (70-105)
[2024-08-14 12:01] LABS: ALANINE AMINOTRANSFERASE 14 IU/L (10-49); ALBUMIN 3.8 g/dL (3.2-4.8); ASPARTATE AMINOTRANSFERASE 19 IU/L (<34)
[2024-08-14 12:02] LABS: BILIRUBIN DIRECT 0.2 mg/dL (<=3.0); BILIRUBIN TOTAL 0.7 mg/dL (0.1-1.0); PHOSPHORUS 2.9 mg/dL (2.5-4.9); PROTEIN TOTAL 7.2 g/dL (6.0-8.3)
[2024-08-14 12:31] LABS: BG CARBOXYHEMOGLOBIN 0.8 % (0.5-1.5); BG FRACTION INSPIRED OXYGEN 35; BG METHEMOGLOBIN 0.3 % (0.5-1.5); BG OXYHEMOGLOBIN 97.9 % (94.0-98.0); BG PCO2 36.7 mmHg (35.0-48.0); BG PH 7.434 (7.350-7.450); BG PO2 137.8 mmHg (83.0-108.0); BG SAMPLE SITE RIGHT RADIAL; BG TOTAL HEMOGLOBIN 11.6 g/dL (13.5-17.5); BG VENT MODE VENT - PRVC
[2024-08-14 16:33] LABS: BG BASE EXCESS -0.6 mmol/L (-2.0-3.0); BG CARBOXYHEMOGLOBIN 0.2 % (0.5-1.5); BG DEOXYHEMOGLOBIN 7.9 % (0.0-5.0); BG FRACTION INSPIRED OXYGEN 35; BG HCO3 ACT 25.2 mmol/L (21.0-28.0); BG METHEMOGLOBIN 0.3 % (0.5-1.5); BG OXYGEN SATURATION 92.1 % (94.0-98.0); BG OXYHEMOGLOBIN 91.6 % (94.0-98.0); BG PCO2 46.2 mmHg (35.0-48.0); BG PH 7.354 (7.350-7.450); BG PO2 71.2 mmHg (83.0-108.0); BG TOTAL HEMOGLOBIN 11.5 g/dL (13.5-17.5); BG VENT MODE COOL AEROSOL
[2024-08-15] VITALS (16 sets, daily range): BP systolic 99–145; BP diastolic 75–92; PULSE 65–93; RESP 14–25; TEMP 36.3918–37.00296; O2SAT 94–100
[2024-08-15 08:45] LABS: CHLORIDE 106 mEq/L (98-107); POTASSIUM 4.9 mEq/L (3.5-5.1); SODIUM 143 mEq/L (136-145)
[2024-08-15 08:46] LABS: CARBON DIOXIDE 28 mEq/L (21-32)
[2024-08-15 08:47] LABS: CALCIUM 8.8 mg/dL (8.7-10.4)
[2024-08-15 08:51] LABS: CREATININE 0.9 mg/dL (0.6-1.3); GLUCOSE 129 mg/dL (70-105); UREA NITROGEN BLOOD 23 mg/dL (9-23)
[2024-08-15 09:06] LABS: BASOPHILS % 0.1 % (0.0-2.0); EOSINOPHILS % 0.3 % (0.0-5.0); HEMATOCRIT. 33.6 % (42.0-52.0); HEMOGLOBIN. 10.9 g/dL (14.0-18.0); LYMPHOCYTES % 10.2 % (20.0-50.0); MEAN CORPUSCULAR HEMOGLOBIN 30.6 pg (28.0-32.0); MEAN CORPUSCULAR HGB CONC 32.5 g/dL (31.0-37.0); MEAN CORPUSCULAR VOLUME 94.3 fL (80.0-94.0); MEAN PLATELET VOLUME 7.5 fl (7.4-10.4); MONOCYTES % 10.5 % (2.0-8.0); NEUTROPHILS % 78.9 % (40.0-76.0); PLATELET 163 x1000/uL (130-400); RED BLOOD CELL COUNT 3.56 mill/uL (4.7-6.1); RED CELL DISTRIBUTION WIDTH 17.2 % (11.6-14.6); WHITE BLOOD COUNT 5.2 x1000/uL (4.5-11.0)
[2024-08-15 13:22] LABS: BG BASE EXCESS -0.1 mmol/L (-2.0-3.0); BG CARBOXYHEMOGLOBIN 1.3 % (0.5-1.5); BG DEOXYHEMOGLOBIN 2.9 % (0.0-5.0); BG FRACTION INSPIRED OXYGEN 32; BG HCO3 ACT 24.6 mmol/L (21.0-28.0); BG METHEMOGLOBIN 0.3 % (0.5-1.5); BG OXYGEN SATURATION 97.1 % (94.0-98.0); BG OXYHEMOGLOBIN 95.5 % (94.0-98.0); BG PCO2 40.4 mmHg (35.0-48.0); BG PH 7.402 (7.350-7.450); BG PO2 95.3 mmHg (83.0-108.0); BG SAMPLE SITE RIGHT BRACHIAL; BG TOTAL HEMOGLOBIN 11.3 g/dL (13.5-17.5); BG VENT MODE NASAL CANNULA
[2024-08-16] VITALS (7 sets, daily range): BP systolic 113–128; BP diastolic 72–83; PULSE 64–91; RESP 15–19; TEMP 36.44736–36.55848; O2SAT 97–100
== END 2024-08-16 15:43 | disposition home or self-care (01) | DRG 208 ==
LOC: ER 22:43 → 5EST 08-10 01:57 → EDBEDREQSVC 08-10 07:58
PROVIDERS: ADMIT Internal Medicine; ATTEND Internal Medicine
PROC: 5A1935Z Respiratory Ventilation, Less than 24 Consecutive Hours (ICD-10-PCS; principal; 2024-08-10)
PROC: 5A1945Z Respiratory Ventilation, 24-96 Consecutive Hours (ICD-10-PCS; 2024-08-11)
DX: J96.21 Acute and chronic respiratory failure with hypoxia (principal); J18.9 Pneumonia, unspecified organism; G92.8 Other toxic encephalopathy; J44.1 Chronic obstructive pulmonary disease with (acute) exacerbation; Z99.11 Dependence on respirator [ventilator] status; E87.4 Mixed disorder of acid-base balance; J44.0 Chronic obstructive pulmonary disease with (acute) lower respiratory infection; J96.22 Acute and chronic respiratory failure with hypercapnia; Z20.822 Contact with and (suspected) exposure to COVID-19; R13.10 Dysphagia, unspecified; D53.9 Nutritional anemia, unspecified; I51.7 Cardiomegaly; N20.0 Calculus of kidney; N28.1 Cyst of kidney, acquired; Z93.1 Gastrostomy status; Z93.0 Tracheostomy status
CPT/HCPCS: 36415; 36600; 71045; 71250; 74176; 80048; 80053; 80076; 80202; 81003; 82375; 82378; 82805; 83605; 83735; 84100; 84145; 84443; 84484; 85025; 85027; 86301; 87070; 87426; 93005; 93970; 94003; 94070; 94640; 99291; A6261; J1120; J2543; J2919; J2920; J3370; J3475; J3490; J7030; J7040; J7060; J7626; J0131

== ENCOUNTER 2025-05-30 20:34 | Inpatient (IN) | payer MEDICARE ==
[~2025-05-30] VITALS: Ht 175.3 cm; Wt 57.2 kg
[~2025-05-30 20:34] MED LIST changes: +ASPI-986 PO; +DOCU-138 MT; +HYDR-4001 MT; +LEVE1000 MT; +LEVO88TA7 PO; -METH4TAB95 MT
[2025-05-30] MEDS: SODIUM CHLORIDE 0.9% (SEPSIS BOLUS) IV ONE (21:19)
[2025-05-30 21:25] LABS: BASOPHILS % 0.7 % (0.0-2.0); EOSINOPHILS % 0.9 % (0.0-5.0); HEMATOCRIT. 31.1 % (42.0-52.0); HEMOGLOBIN. 9.7 g/dL (14.0-18.0); LYMPHOCYTES % 15.8 % (20.0-50.0); MEAN PLATELET VOLUME 9.2 fl (7.4-10.4); MONOCYTES % 5.8 % (2.0-8.0); NEUTROPHILS % 76.8 % (40.0-76.0); PLATELET 93 x1000/uL (130-400); RED BLOOD CELL COUNT 3.18 mill/uL (4.7-6.1); RED CELL DISTRIBUTION WIDTH 14.9 % (11.6-14.6)
[2025-05-30] MEDS: PIPERACILLIN/TAZO 3.375G/50ML 50 ML IV ONE (21:29)
[2025-05-30 21:38] LABS: CREATININE 0.8 mg/dL (0.6-1.3)
[2025-05-30 21:38] LABS: BG BASE EXCESS 24.6 mmol/L (-2.0-3.0); BG CARBOXYHEMOGLOBIN 1.6 % (0.5-1.5); BG DEOXYHEMOGLOBIN 0.2 % (0.0-5.0); BG FRACTION INSPIRED OXYGEN 40; BG HCO3 ACT 58.1 mmol/L (21.0-28.0); BG METHEMOGLOBIN 0.3 % (0.5-1.5); BG OXYGEN SATURATION 99.8 % (94.0-98.0); BG OXYHEMOGLOBIN 97.9 % (94.0-98.0); BG PCO2 150.4 mmHg (35.0-48.0); BG PH 7.205 (7.350-7.450); BG PO2 280.4 mmHg (83.0-108.0); BG SAMPLE SITE RIGHT RADIAL; BG TOTAL HEMOGLOBIN 10.6 g/dL (13.5-17.5); BG VENT MODE VENT - CPAP
[2025-05-30 21:39] LABS: TROPONIN I HIGH SENSITIVITY 10 ng/L (3.0-53); UREA NITROGEN BLOOD 16 mg/dL (9-23)
[2025-05-30 21:40] LABS: ASPARTATE AMINOTRANSFERASE 16 IU/L (<34)
[2025-05-30 21:41] LABS: BILIRUBIN DIRECT 0.3 mg/dL (<=3.0); BILIRUBIN TOTAL 1.2 mg/dL (0.1-1.0); PROTEIN TOTAL 7.9 g/dL (6.0-8.3)
[2025-05-30] MEDS: ALBUTEROL (0.083%) 2.5MG/3ML NEB HHN SCH (21:51)
[2025-05-30] MEDS: IPRATROPIUM BROMIDE (0.02%) 0.5MG/2.5ML NEB HHN SCH (21:51)
[2025-05-30 21:58] VITALS: PULSE 103; PULSE 93; RESP 27; O2SAT 97
[2025-05-30] MEDS: DEXTROSE 50% WATER 50ML SYRINGE IV NR (22:06)
[2025-05-30] MEDS: VANCOMYCIN 1G PREMIX 200 ML IV ONE (22:06)
[2025-05-30] MEDS: INSULIN REGULAR (HUMULIN R) 1000UNITS/10ML VIAL IV NR (22:07)
[2025-05-30] MEDS: CALCIUM GLUCONATE 100MG/ML 10ML VIAL IV NR (22:13)
[2025-05-30 23:12] LABS: BG BASE EXCESS 24.5 mmol/L (-2.0-3.0); BG CARBOXYHEMOGLOBIN 2.4 % (0.5-1.5); BG DEOXYHEMOGLOBIN 2.5 % (0.0-5.0); BG FRACTION INSPIRED OXYGEN 40; BG HCO3 ACT 52.1 mmol/L (21.0-28.0); BG METHEMOGLOBIN 0.0 % (0.5-1.5); BG OXYGEN SATURATION 97.4 % (94.0-98.0); BG OXYHEMOGLOBIN 95.1 % (94.0-98.0); BG PCO2 80.8 mmHg (35.0-48.0); BG PEEP (cmH2O) 5.0 cmH2O; BG PH 7.427 (7.350-7.450); BG PO2 91.4 mmHg (83.0-108.0); BG SAMPLE SITE RIGHT BRACHIAL; BG TIDAL VOLUME(mL) 450.0 mL; BG TOTAL HEMOGLOBIN 8.4 g/dL (13.5-17.5); BG VENT MODE VENT - AC; BG VENT RATE 20.0 set
[2025-05-30 23:20] VITALS: RESP 21
[2025-05-30] MEDS ORDERED: HYDRALAZINE 20MG/ML VIAL IV PRN (23:45)
[2025-05-30] MEDS ORDERED: IPRATROPIUM/ALBUTEROL 0.5-3(2.5)MG/3ML NEB HHN PRN (23:45)
[2025-05-30] MEDS ORDERED: ACETAMINOPHEN 325MG TABLET GT PRN (23:45)
[2025-05-30] MEDS ORDERED: ACETAMINOPHEN 650MG/20.3ML UDC GT PRN (23:45)
[2025-05-30 23:54] VITALS: PULSE 101; RESP 24; O2SAT 99
[2025-05-31] VITALS (24 sets, daily range): BP systolic 86–120; BP diastolic 58–72; PULSE 73–111; RESP 12–24; TEMP 36.3–37.1; O2SAT 97–100
[2025-05-31] MEDS: BLOOD SUGAR DIAGNOSTIC STRIP TEST SCH
[2025-05-31] MEDS: SODIUM CHLORIDE 0.9% 500 ML IV ONE (00:15)
[2025-05-31] MEDS: DEXT 5%/0.9% NACL 1,000 ML IV SCH (01:23)
[2025-05-31] MEDS: DEXTROSE 50% WATER 50ML SYRINGE IV PRN (01:51)
[2025-05-31] MEDS: AZITHROMYCIN 500MG/250ML 250 ML IV SCH ×2 (02:01→23:48)
[2025-05-31] MEDS: IPRATROPIUM/ALBUTEROL 0.5-3(2.5)MG/3ML NEB HHN SCH (06:00)
[2025-05-31] MEDS: PIPERACILLIN/TAZO 3.375G/50ML 50 ML IV SCH (06:39)
[2025-05-31] MEDS: VANCOMYCIN 750MG/150ML (BAXTER) IV SCH (06:39)
[2025-05-31 07:42] LABS: BASOPHILS % 0.4 % (0.0-2.0); EOSINOPHILS % 0.9 % (0.0-5.0); HEMATOCRIT. 25.8 % (42.0-52.0); HEMOGLOBIN. 8.0 g/dL (14.0-18.0); LYMPHOCYTES % 9.6 % (20.0-50.0); MEAN PLATELET VOLUME 8.4 fl (7.4-10.4); MONOCYTES % 10.7 % (2.0-8.0); NEUTROPHILS % 78.4 % (40.0-76.0); PLATELET 79 x1000/uL (130-400); RED BLOOD CELL COUNT 2.62 mill/uL (4.7-6.1); RED CELL DISTRIBUTION WIDTH 14.8 % (11.6-14.6)
[2025-05-31 08:10] LABS: CREATININE 0.7 mg/dL (0.6-1.3)
[2025-05-31 08:11] LABS: LDL CHOLESTEROL 74 mg/dL (5-100); TRIGLYCERIDE 77 mg/dL (0-150); UREA NITROGEN BLOOD 13 mg/dL (9-23)
[2025-05-31 08:15] LABS: T4 FREE 0.97 ng/dL (0.89-1.76)
[2025-05-31 09:03] LABS: BG BASE EXCESS 19.1 mmol/L (-2.0-3.0); BG CARBOXYHEMOGLOBIN 1.8 % (0.5-1.5); BG DEOXYHEMOGLOBIN 0.9 % (0.0-5.0); BG FRACTION INSPIRED OXYGEN 40; BG HCO3 ACT 43.4 mmol/L (21.0-28.0); BG METHEMOGLOBIN 0.3 % (0.5-1.5); BG OXYGEN SATURATION 99.1 % (94.0-98.0); BG OXYHEMOGLOBIN 97.0 % (94.0-98.0); BG PCO2 50.2 mmHg (35.0-48.0); BG PEEP (cmH2O) 5.0 cmH2O; BG PH 7.555 (7.350-7.450); BG PO2 116.1 mmHg (83.0-108.0); BG SAMPLE SITE LEFT RADIAL; BG TIDAL VOLUME(mL) 450.0 mL; BG TOTAL HEMOGLOBIN 8.4 g/dL (13.5-17.5); BG VENT MODE VENT - AC/PRVC; BG VENT RATE 16.0 set
[2025-05-31 09:10] LABS: PHOSPHORUS < 0.3 mg/dL (2.5-4.9)
[2025-05-31 09:15] LABS: CLARITY URINE CLEAR (CLEAR); COLOR URINE YELLOW (YELLOW); GLUCOSE URINE NEGATIVE (NEGATIVE); KETONES URINE NEGATIVE (NEGATIVE); LEUKOCYTE ESTERASE URINE NEGATIVE (NEGATIVE); NITRITE URINE NEGATIVE (NEGATIVE); OCCULT BLOOD URINE TRACE (NEGATIVE); PH URINE >=9.0 (4.5-8.0); PROTEIN URINE 1+ (NEGATIVE); SPECIFIC GRAVITY URINE 1.015 (1.005-1.030); UROBILINOGEN URINE 1.0 E.U./dL (0.2-1.0)
[2025-05-31 09:37] LABS: RBC URINE 15-25 /hpf (0-2); SQUAMOUS EPITHELIAL CELL URINE RARE /lpf (RARE/1+); WBC URINE 0-2 /hpf (0-2)
[2025-05-31 09:38] LABS: BACTERIA URINE 2+; YEAST URINE 1+
[2025-05-31] MEDS: PANTOPRAZOLE SODIUM 40 MG/VIAL IV SCH (09:39)
[2025-05-31 09:43] LABS: *AMPHETAMINES SCREEN URINE NEGATIVE (NEGATIVE); *BARBITURATES SCREEN URINE NEGATIVE (NEGATIVE); *BENZODIAZEPINES SCREEN URINE NEGATIVE (NEGATIVE); *COCAINE SCREEN URINE NEGATIVE (NEGATIVE); CANNABINOID URINE SCREEN NEGATIVE (NEGATIVE); ECSTASY MDMA SCREEN URINE NEGATIVE (NEGATIVE); METHADONE URINE SCREEN NEGATIVE (NEGATIVE); OPIATES URINE SCREEN NEGATIVE (NEGATIVE); PHENCYCLIDINE URINE SCREEN NEGATIVE (NEGATIVE)
[2025-05-31] MEDS ORDERED: SODIUM PHOSPHATE 30 MMOL in DEXT 5% WATER 490 ML IV ONE (09:45)
[2025-05-31] MEDS: MAGNESIUM 2 G PREMIX 50 ML IV ONE ×2 (10:29→17:01)
[2025-05-31 11:16] LABS: BG BASE EXCESS 17.7 mmol/L (-2.0-3.0); BG CARBOXYHEMOGLOBIN 1.3 % (0.5-1.5); BG DEOXYHEMOGLOBIN 1.5 % (0.0-5.0); BG FRACTION INSPIRED OXYGEN 40; BG HCO3 ACT 40.0 mmol/L (21.0-28.0); BG METHEMOGLOBIN 0.0 % (0.5-1.5); BG OXYGEN SATURATION 98.5 % (94.0-98.0); BG OXYHEMOGLOBIN 97.2 % (94.0-98.0); BG PCO2 37.7 mmHg (35.0-48.0); BG PEEP (cmH2O) 5.0 cmH2O; BG PH 7.644 (7.350-7.450); BG PO2 89.7 mmHg (83.0-108.0); BG SAMPLE SITE LEFT RADIAL; BG TIDAL VOLUME(mL) 450.0 mL; BG TOTAL HEMOGLOBIN 8.6 g/dL (13.5-17.5); BG VENT MODE VENT AC/PRVC; BG VENT RATE 20.0 set
[2025-05-31] MEDS: LEVETIRACETAM 500MG PREMIX 100 ML IV SCH (11:39)
[2025-05-31] MEDS: SODIUM PHOSPHATE 20 MMOL in DEXT 5% WATER 243.3333 ML IV ONE (12:42)
[2025-05-31 13:14] LABS: BG BASE EXCESS 17.0 mmol/L (-2.0-3.0); BG CARBOXYHEMOGLOBIN 1.4 % (0.5-1.5); BG DEOXYHEMOGLOBIN 0.7 % (0.0-5.0); BG FRACTION INSPIRED OXYGEN 40; BG HCO3 ACT 40.7 mmol/L (21.0-28.0); BG METHEMOGLOBIN 0.3 % (0.5-1.5); BG OXYGEN SATURATION 99.3 % (94.0-98.0); BG OXYHEMOGLOBIN 97.6 % (94.0-98.0); BG PCO2 45.3 mmHg (35.0-48.0); BG PEEP (cmH2O) 5.0 cmH2O; BG PH 7.571 (7.350-7.450); BG PO2 115.8 mmHg (83.0-108.0); BG SAMPLE SITE LEFT RADIAL; BG TIDAL VOLUME(mL) 450.0 mL; BG TOTAL HEMOGLOBIN 8.3 g/dL (13.5-17.5); BG VENT MODE AC/VC; BG VENT RATE 14.0 set
[2025-05-31] MEDS: DEXT 5% IV ONE (17:01)
[2025-05-31] MEDS: SODIUM PHOSPHATE IV ONE (17:01)
[2025-05-31] MEDS: WATER IV ONE (17:01)
[2025-05-31] MEDS: VANCOMYCIN 1G PREMIX 200 ML IV SCH (20:46)
[2025-05-31] MEDS: QUETIAPINE FUMARATE 50MG TABLET PO SCH (23:53)
[2025-06-01] VITALS (22 sets, daily range): BP systolic 94–115; BP diastolic 63–74; PULSE 64–79; RESP 12–20; TEMP 36.3–37.3; O2SAT 99–100
[2025-06-01] MEDS: DOXAZOSIN MESYLATE 2MG TABLET PO SCH
[2025-06-01] MEDS: MELATONIN 3MG TABLET GT SCH (01:40)
[2025-06-01] MEDS ORDERED: LORAZEPAM 2MG/ML UD SYRINGE IV PRN (05:02)
[2025-06-01 06:00] LABS: CREATININE 0.9 mg/dL (0.6-1.3); UREA NITROGEN BLOOD 9 mg/dL (9-23)
[2025-06-01 06:21] LABS: BASOPHILS % 0.4 % (0.0-2.0); EOSINOPHILS % 4.0 % (0.0-5.0); HEMATOCRIT. 23.6 % (42.0-52.0); HEMOGLOBIN. 7.5 g/dL (14.0-18.0); LYMPHOCYTES % 16.6 % (20.0-50.0); MEAN PLATELET VOLUME 8.5 fl (7.4-10.4); MONOCYTES % 7.1 % (2.0-8.0); NEUTROPHILS % 71.9 % (40.0-76.0); PLATELET 92 x1000/uL (130-400); RED BLOOD CELL COUNT 2.45 mill/uL (4.7-6.1); RED CELL DISTRIBUTION WIDTH 15.4 % (11.6-14.6)
[2025-06-01 09:04] LABS: BG BASE EXCESS 11.8 mmol/L (-2.0-3.0); BG CARBOXYHEMOGLOBIN 1.6 % (0.5-1.5); BG DEOXYHEMOGLOBIN 0.8 % (0.0-5.0); BG FRACTION INSPIRED OXYGEN 40; BG HCO3 ACT 37.0 mmol/L (21.0-28.0); BG METHEMOGLOBIN 0.1 % (0.5-1.5); BG OXYGEN SATURATION 99.2 % (94.0-98.0); BG OXYHEMOGLOBIN 97.5 % (94.0-98.0); BG PCO2 53.7 mmHg (35.0-48.0); BG PEEP (cmH2O) 5.0 cmH2O; BG PH 7.456 (7.350-7.450); BG PO2 137.8 mmHg (83.0-108.0); BG SAMPLE SITE LEFT RADIAL; BG TIDAL VOLUME(mL) 400.0 mL; BG TOTAL HEMOGLOBIN 7.6 g/dL (13.5-17.5); BG TOTAL RESPIRATORY RATE 14 b/min; BG VENT MODE VENT - AC; BG VENT RATE 12.0 set
[2025-06-01] MEDS ORDERED: DOXAZOSIN MESYLATE 2MG TABLET PO SCH (21:00)
[2025-06-01] MEDS ORDERED: MELATONIN 3MG TABLET GT SCH (21:00)
[2025-06-02] VITALS (24 sets, daily range): BP systolic 86–113; BP diastolic 57–85; PULSE 65–106; RESP 13–26; TEMP 36.2–37.2; O2SAT 96–100
[2025-06-02 08:51] LABS: BG BASE EXCESS 8.4 mmol/L (-2.0-3.0); BG CARBOXYHEMOGLOBIN 1.4 % (0.5-1.5); BG DEOXYHEMOGLOBIN 1.2 % (0.0-5.0); BG FRACTION INSPIRED OXYGEN 40; BG HCO3 ACT 33.6 mmol/L (21.0-28.0); BG METHEMOGLOBIN 0.4 % (0.5-1.5); BG OXYGEN SATURATION 98.8 % (94.0-98.0); BG OXYHEMOGLOBIN 97.0 % (94.0-98.0); BG PCO2 51.6 mmHg (35.0-48.0); BG PEEP (cmH2O) 5.0 cmH2O; BG PH 7.432 (7.350-7.450); BG PO2 125.8 mmHg (83.0-108.0); BG SAMPLE SITE RIGHT RADIAL; BG TIDAL VOLUME(mL) 400.0 mL; BG TOTAL HEMOGLOBIN 7.5 g/dL (13.5-17.5); BG VENT MODE VENT - AC; BG VENT RATE 12.0 set
[2025-06-02] MEDS ORDERED: LIDOCAINE HCL 1% 10 MG/ML 10ML VIAL ONE (09:21)
[2025-06-02 12:59] LABS: BG BASE EXCESS 10.9 mmol/L (-2.0-3.0); BG CARBOXYHEMOGLOBIN 1.1 % (0.5-1.5); BG DEOXYHEMOGLOBIN 1.7 % (0.0-5.0); BG FRACTION INSPIRED OXYGEN 40; BG HCO3 ACT 36.8 mmol/L (21.0-28.0); BG METHEMOGLOBIN 0.1 % (0.5-1.5); BG OXYGEN SATURATION 98.3 % (94.0-98.0); BG OXYHEMOGLOBIN 97.1 % (94.0-98.0); BG PCO2 58.5 mmHg (35.0-48.0); BG PEEP (cmH2O) 5.0 cmH2O; BG PH 7.416 (7.350-7.450); BG PO2 111.8 mmHg (83.0-108.0); BG SAMPLE SITE RIGHT RADIAL; BG TOTAL HEMOGLOBIN 8.0 g/dL (13.5-17.5); BG VENT MODE VENT - CPAP
[2025-06-02] MEDS: VANCOMYCIN 1GM/200ML PMX (BAXTER) IV SCH (16:59)
[2025-06-02 17:15] LABS: CREATININE 1.0 mg/dL (0.6-1.3)
[2025-06-02 17:16] LABS: UREA NITROGEN BLOOD 7 mg/dL (9-23)
[2025-06-02 17:18] LABS: PHOSPHORUS 2.8 mg/dL (2.5-4.9)
[2025-06-03] VITALS (42 sets, daily range): BP systolic 84–126; BP diastolic 52–79; PULSE 60–90; RESP 12–20; TEMP 36.3–37; O2SAT 95–100
[2025-06-03] MEDS: SODIUM CHLORIDE 0.9% 250 ML IV ONE (04:20)
[2025-06-03] MEDS: MIDODRINE HCL 5MG TABLET PO SCH (08:43)
[2025-06-03] MEDS: LIPASE/PROTEASE/AMYLASE 4,200/14,200/24,600 UNITS CAP DR PO NR (10:59)
[2025-06-03] MEDS: LIPASE/PROTEASE/AMYLASE 4,200/14,200/24,600 UNITS CAP DR PO SCH (20:37)
[2025-06-03] MEDS: DEXT 5%/0.45% NACL 1000ML 1,000 ML IV SCH (20:37)
[2025-06-03] MEDS: ONDANSETRON HCL 4MG/2ML INJ IV PRN (23:06)
[2025-06-04] VITALS (30 sets, daily range): BP systolic 78–128; BP diastolic 31–72; PULSE 60–116; RESP 14–27; TEMP 36.4–37.2; O2SAT 92–100
[2025-06-04 07:03] LABS: PLATELET 86 x1000/uL (130-400); RED BLOOD CELL COUNT 2.46 mill/uL (4.7-6.1); RED CELL DISTRIBUTION WIDTH 15.5 % (11.6-14.6)
[2025-06-04 07:45] LABS: CREATININE 1.2 mg/dL (0.6-1.3); UREA NITROGEN BLOOD 11 mg/dL (9-23)
[2025-06-04 07:48] LABS: PHOSPHORUS 3.4 mg/dL (2.5-4.9)
[2025-06-04] MEDS: SODIUM BICARBONATE 650MG TABLET JT SCH ×2 (15:09→16:37)
[2025-06-04] MEDS: LIPASE/PROTEASE/AMYLASE 4,200/14,200/24,600 UNITS CAP DR JT SCH (16:37)
[2025-06-04] MEDS: BISACODYL 10MG SUPP PR PRN (17:32)
[2025-06-04] MEDS: LORAZEPAM 2MG/ML UD SYRINGE IV SCH (22:55)
[2025-06-05] VITALS (23 sets, daily range): BP systolic 92–138; BP diastolic 54–85; PULSE 61–91; RESP 13–22; TEMP 36.5–37.3; O2SAT 95–98
[2025-06-05 06:22] LABS: BASOPHILS % 0.6 % (0.0-2.0); EOSINOPHILS % 5.6 % (0.0-5.0); HEMATOCRIT. 22.8 % (42.0-52.0); HEMOGLOBIN. 7.4 g/dL (14.0-18.0); LYMPHOCYTES % 15.5 % (20.0-50.0); MEAN PLATELET VOLUME 7.7 fl (7.4-10.4); MONOCYTES % 11.4 % (2.0-8.0); NEUTROPHILS % 66.9 % (40.0-76.0); PLATELET 112 x1000/uL (130-400); RED BLOOD CELL COUNT 2.38 mill/uL (4.7-6.1); RED CELL DISTRIBUTION WIDTH 15.6 % (11.6-14.6)
[2025-06-05 06:39] LABS: CREATININE 1.2 mg/dL (0.6-1.3); UREA NITROGEN BLOOD 9 mg/dL (9-23)
[2025-06-05 06:41] LABS: ASPARTATE AMINOTRANSFERASE 8 IU/L (<34); BILIRUBIN DIRECT 0.2 mg/dL (<=3.0); BILIRUBIN TOTAL 0.7 mg/dL (0.1-1.0)
[2025-06-05 06:42] LABS: PROTEIN TOTAL 6.1 g/dL (6.0-8.3)
[2025-06-05 08:43] LABS: FOLIC ACID (FOLATE) SERUM 15.13 ng/mL (>5.38)
[2025-06-05 08:44] LABS: VITAMIN B12 SERUM 775 pg/mL (211-911)
[2025-06-05] MEDS: SODIUM BICARBONATE 650MG TABLET GT SCH ×2 (14:00→14:09)
[2025-06-05] MEDS: LIPASE/PROTEASE/AMYLASE 4,200/14,200/24,600 UNITS CAP DR NG SCH (14:10)
[2025-06-06] VITALS (23 sets, daily range): BP systolic 104–142; BP diastolic 62–80; PULSE 53–84; RESP 13–22; TEMP 36.4–37.5; O2SAT 95–100
[2025-06-06] MEDS: LORAZEPAM 2MG/ML UD SYRINGE IV NR (00:23)
[2025-06-06] MEDS: MELATONIN 3MG TABLET PO NR (23:34)
[2025-06-07] VITALS (23 sets, daily range): BP systolic 100–135; BP diastolic 66–82; PULSE 53–98; RESP 14–21; TEMP 36.8–37.2; O2SAT 93–100
[2025-06-07] MEDS: MELATONIN 3MG TABLET GT SCH (20:51)
[2025-06-07] MEDS: LORAZEPAM 0.5MG TABLET PO NR (22:48)
[2025-06-08] VITALS (21 sets, daily range): BP systolic 110–136; BP diastolic 72–86; PULSE 69–84; RESP 13–22; TEMP 36.3–37.1; O2SAT 97–100
[2025-06-09] VITALS (14 sets, daily range): BP systolic 108–141; BP diastolic 59–87; PULSE 61–99; RESP 14–20; TEMP 36.5–36.7; O2SAT 97–100
[2025-06-09] MEDS: IOHEXOL-350 100 ML BOTTLE ONE (07:47)
[2025-06-09] MEDS: SODIUM BICARBONATE 650MG TABLET PO SCH (07:47)
[2025-06-09] MEDS: LIPASE/PROTEASE/AMYLASE 4,200/14,200/24,600 UNITS CAP DR PO SCH (07:47)
[2025-06-09] MEDS ORDERED: LEVE1000 MT (14:22)
[2025-06-09 19:12] LABS: PLATELET 234 x1000/uL (130-400); RED BLOOD CELL COUNT 3.05 mill/uL (4.7-6.1); RED CELL DISTRIBUTION WIDTH 15.4 % (11.6-14.6)
[2025-06-09 19:31] LABS: CREATININE 0.9 mg/dL (0.6-1.3); UREA NITROGEN BLOOD 6 mg/dL (9-23)
[2025-06-09 19:33] LABS: PHOSPHORUS 2.6 mg/dL (2.5-4.9)
[2025-06-09] MEDS: GUAIFENESIN 200MG/10ML SUGAR FREE UDC GT PRN (22:03)
[2025-06-09] MEDS: LORAZEPAM 1MG TABLET PO SCH (22:04)
[2025-06-10] VITALS (10 sets, daily range): BP systolic 90–139; BP diastolic 60–78; PULSE 65–93; RESP 14–20; TEMP 36.3–37.2; O2SAT 78–99
[2025-06-10 05:56] LABS: BG BASE EXCESS 5.9 mmol/L (-2.0-3.0); BG CARBOXYHEMOGLOBIN 0.3 % (0.5-1.5); BG DEOXYHEMOGLOBIN 1.7 % (0.0-5.0); BG FLOW(L/min) 5.00 L/min; BG FRACTION INSPIRED OXYGEN 40; BG HCO3 ACT 32.0 mmol/L (21.0-28.0); BG METHEMOGLOBIN 0.3 % (0.5-1.5); BG OXYGEN SATURATION 98.3 % (94.0-98.0); BG OXYHEMOGLOBIN 97.7 % (94.0-98.0); BG PCO2 55.0 mmHg (35.0-48.0); BG PH 7.382 (7.350-7.450); BG PO2 120.3 mmHg (83.0-108.0); BG SAMPLE SITE RIGHT RADIAL; BG TOTAL HEMOGLOBIN 9.6 g/dL (13.5-17.5); BG VENT MODE MASK - SIMPLE
[2025-06-10 06:16] LABS: CREATININE 0.9 mg/dL (0.6-1.3)
[2025-06-10 06:17] LABS: UREA NITROGEN BLOOD 6 mg/dL (9-23)
[2025-06-10 06:58] LABS: BASOPHILS % 0.9 % (0.0-2.0); EOSINOPHILS % 4.2 % (0.0-5.0); HEMATOCRIT. 25.1 % (42.0-52.0); HEMOGLOBIN. 8.3 g/dL (14.0-18.0); LYMPHOCYTES % 21.3 % (20.0-50.0); MEAN PLATELET VOLUME 7.1 fl (7.4-10.4); MONOCYTES % 13.9 % (2.0-8.0); NEUTROPHILS % 59.7 % (40.0-76.0); PLATELET 249 x1000/uL (130-400); RED BLOOD CELL COUNT 2.67 mill/uL (4.7-6.1); RED CELL DISTRIBUTION WIDTH 15.4 % (11.6-14.6)
== END 2025-06-10 16:55 | disposition home health service (06) | DRG 870 ==
LOC: ER 20:34 → EDBEDREQSVC 23:00 → EDBEDREQ 23:00 → EDBEDREQTM 23:00 → ENRESERV 23:17 → 5EST 23:56
PROVIDERS: ADMIT Internal Medicine; ATTEND Internal Medicine
PROC: 5A1955Z Respiratory Ventilation, Greater than 96 Consecutive Hours (ICD-10-PCS; principal; 2025-05-30)
PROC: 02HV33Z Insertion of Infusion Device into Superior Vena Cava, Percutaneous Approach (ICD-10-PCS; 2025-06-02)
PROC: B548ZZA Ultrasonography of Superior Vena Cava, Guidance (ICD-10-PCS; 2025-06-02)
DX: A41.9 Sepsis, unspecified organism (principal); L89.153 Pressure ulcer of sacral region, stage 3; J69.0 Pneumonitis due to inhalation of food and vomit; J96.21 Acute and chronic respiratory failure with hypoxia; J96.22 Acute and chronic respiratory failure with hypercapnia; G92.8 Other toxic encephalopathy; E87.4 Mixed disorder of acid-base balance; E87.20 Acidosis, unspecified; D61.818 Other pancytopenia; K94.23 Gastrostomy malfunction; Z86.16 Personal history of COVID-19; E87.5 Hyperkalemia; J44.9 Chronic obstructive pulmonary disease, unspecified; D53.9 Nutritional anemia, unspecified; E83.39 Other disorders of phosphorus metabolism; E83.42 Hypomagnesemia; D69.6 Thrombocytopenia, unspecified; E78.5 Hyperlipidemia, unspecified; L98.429 Non-pressure chronic ulcer of back with unspecified severity; Z93.0 Tracheostomy status; Z87.01 Personal history of pneumonia (recurrent); Z74.01 Bed confinement status; Z86.73 Personal history of transient ischemic attack (TIA), and cerebral infarction without residual deficits; Z79.899 Other long term (current) drug therapy; Y83.8 Other surgical procedures as the cause of abnormal reaction of the patient, or of later complication, without mention of misadventure at the time of the procedure; Y82.8 Other medical devices associated with adverse incidents
CPT/HCPCS: 31720; 36415; 36573; 36600; 71045; 71250; 80048; 80061; 80076; 80202; 80305; 81003; 82270; 82375; 82607; 82728; 82746; 82805; 82962; 83540; 83550; 83605; 83735; 83880; 84100; 84145; 84439; 84443; 84484; 85025; 85027; 85044; 87070; 87077; 87186; 93005; 93970; 93971; 94002; 94003; 94070; 94640; 94664; 99291; A4606; C1725; C1769; J0456; J0612; J1815; J1953; J2003; J2060; J2405; J2470; J2543; J3373; J3475; J3490; J7030; J7042; J7060; Q9967